=== PATIENT | male | born 1960 | race Caucasian/White ===

== ENCOUNTER → 2017-04-06 | Day surgery (SDC) | payer SELFPAY ==
[~2017-04-06] VITALS: Ht 193 cm; Wt 113.4 kg
== END ==
LOC: OPS 07:35
PROC: 0DJD8ZZ Inspection of Lower Intestinal Tract, Via Natural or Artificial Opening Endoscopic (ICD-10-PCS; principal; 2017-04-06)
DX: R63.4 Abnormal weight loss (principal); Z12.11 Encounter for screening for malignant neoplasm of colon; K57.90 Diverticulosis of intestine, part unspecified, without perforation or abscess without bleeding; E78.5 Hyperlipidemia, unspecified; I10 Essential (primary) hypertension; E29.1 Testicular hypofunction; M19.079 Primary osteoarthritis, unspecified ankle and foot; E55.9 Vitamin D deficiency, unspecified; M54.9 Dorsalgia, unspecified; G89.29 Other chronic pain; Z88.0 Allergy status to penicillin; Z79.899 Other long term (current) drug therapy; Z79.82 Long term (current) use of aspirin
CPT/HCPCS: 45378; 99070; J2704; J7635